=== PATIENT | male | born 1965 | race Caucasian/White ===

== ENCOUNTER 2019-03-03 14:15 | Outpatient (RCR) | payer OTHER | END 2019-05-24 | disposition home or self-care (01) | LOC: WSOT | DX: R20.2 Paresthesia of skin (principal) ==

== ENCOUNTER → 2022-04-27 | Outpatient (CLI) | payer OTHER | LOC: MHCPAIN 11:48 | DX: M47.812 Spondylosis without myelopathy or radiculopathy, cervical region (principal); M54.12 Radiculopathy, cervical region ==